=== PATIENT | male | born 1980 | race Asian ===

== ENCOUNTER 2018-04-21 09:23 | Emergency (ER) | payer OTHER ==
[~2018-04-21] VITALS: Ht 175.3 cm; Wt 72.6 kg
[2018-04-21 09:25] VITALS: TEMP 97.9
[2018-04-21 10:01] LABS: PLATELET COUNT 136 K/uL (142-355)
[2018-04-21 10:11] LABS: POTASSIUM 3.5 mmol/L (3.6-5.2)
[2018-04-21 10:47] VITALS: BP 118/82
== END 2018-04-21 10:51 | disposition home or self-care (01) ==
LOC: ED 09:23
DX: S63.105A Unspecified dislocation of left thumb, initial encounter (principal); W23.0XXA Caught, crushed, jammed, or pinched between moving objects, initial encounter
CPT/HCPCS: 80053; 85027; 99283